=== PATIENT | female | born 1965 | race Hispanic/Latino ===

== ENCOUNTER → 2018-02-07 10:45 | Outpatient (CLI) | payer BC, SELFPAY ==
--- NOTE | 2018-02-07 | DI.MG.S_ITS ---
BILATERAL DIGITAL SCREENING MAMMOGRAM 3D/2D WITH CAD: 02/07/2018 CLINICAL: Routine screening. Comparison is made to exams dated: 02/14/2017 mammogram, 10/24/2016 mammogram, and 11/18/2015 mammogram - [facility]. There are scattered fibroglandular elements in both breasts. Current study was also evaluated with a Computer Aided Detection (CAD) system. No significant masses, calcifications, or other findings are seen in either breast. There has been no significant interval change. IMPRESSION: NEGATIVE There is no mammographic evidence of malignancy. A 1 year screening mammogram is recommended. This exam was interpreted at Station ID: [id number]. NOTE: For mammograms, a report in lay terms will be sent to the patient. Approximately 15% of breast malignancies will not be visualized mammographically. In the management of a palpable breast mass, a negative mammogram must not discourage biopsy of a clinically suspicious lesion. Electronically Signed By: Stephane kolb/prema:02/07/2018 16:36:01 letter sent: Normal Exam ACR BI-RADS Category 1: Negative 3341F
== END ==
PROVIDERS: Family Provider Family Medicine; PCP Family Medicine; Visit Provider Family Medicine
DX: Z12.31 Encounter for screening mammogram for malignant neoplasm of breast (principal)
CPT/HCPCS: 77063; 77067

== ENCOUNTER 2018-03-22 13:12 | Day surgery (SDC) | payer BC, SELFPAY ==
[2018-03-15 10:19] VITALS: BMI 26.9
[2018-03-22 13:28] VITALS: BP 120/75; PULSE 69; RESP 18; TEMP 36.5; O2SAT 99; BMI 26.9
[2018-03-22] MEDS: LACTATED RINGERS 1,000 ML 42 ML IV (14:15)
--- NOTE | 2018-03-22 14:48 | PM.PREOP ---
Pre-operative Note Interval Note Pre-op Check: Yes History & Physical Reviewed by Physician Changes: No
[2018-03-22] MEDS: CEFAZOLIN VIAL 1 GM in SODIUM CHLORIDE 0.9% 100 ML 200 ML IV (14:50)
--- NOTE | 2018-03-22 15:04 | SUR.OPER ---
Supine on padded OR bed, head on pillow, arms secured on padded arm boards at <90 degrees abduction, left leg under control of surgeon, right leg is taped over the blanket to the bed, safety belt at thigh, bump under left hip.
[2018-03-22] MEDS: LIDOCAINE 1% W/EPI INJ 20 ML INJ (15:19)
[2018-03-22] MEDS: BUPIVACAINE 0.5% (PF) VIAL 30 ML INJ (15:22)
[2018-03-22 15:44] VITALS: BP 110/74; PULSE 74; RESP 16; TEMP 36.4; O2SAT 98
--- NOTE | 2018-03-22 15:56 | PM.OP.1 ---
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 She has previously selected local anesthesia only so after carefully placing her under monitoring, the foot was prepped and injected with the recorded injectables to the forefoot and the heel to achieve anesthesia. She tolerated this well. The foot and ankle were prepped and draped in the usual aseptic manner. After a check of anesthesia a pair of converging semi elliptical longitudinal cuts were made to encompass the plantar medial heel keratoderma. This was down to full-thickness and was able to be excised entirely. This was evaluated and showed no significant areas of discoloration no extension in the subcutaneous area and no unusual projections or foreign bodies. The same was performed to the distal 2nd metatarsal head area and the cuts were instead done vertically. This 1 had a little more thinness to it based on the location of the skin. I mobilized the subcutaneous tissues a little bit to allow for coaptation of the skin. The areas were irrigated with copious amounts of normal sterile saline. The areas were cauterized and ligated as necessary. A single Vicryl suture was placed in the heel incision and both skin incisions were closed with nylon. She was dressed with a sterile lightly compressive dressing and transferred to the PACU with vital signs stable and vascular status intact. Complications: none Condition: stable Disposition: PACU Plan for aftercare: Patient will be discharged home on written and oral postoperative instructions including keeping the dressing dry and intact, avoiding ambulation to the foot, icing and elevating the foot when seated at home. DVT prevention techniques have been reviewed. The expectation was approximately 3 weeks that the plantar sutures would be in place and this can be out earlier but will continue to monitor and watch this. She is for the most part nonweightbearing on the foot during the immediate postoperative period and we will review this status at her 1st postoperative visit.
== END 2018-03-22 16:01 | disposition home or self-care (01) ==
PROVIDERS: Family Provider Family Medicine; PCP Family Medicine; Visit Provider Podiatrist
PROC: (CPT 11424; principal; 2018-03-22 14:15)
DX: R22.42 Localized swelling, mass and lump, left lower limb (principal); M77.42 Metatarsalgia, left foot
CPT/HCPCS: 11424 ×2; J0690

== ENCOUNTER → 2019-01-03 10:51 | Outpatient (CLI) | payer BC, SELFPAY ==
[2019-01-03 13:13] LABS: Cholesterol 241 mg/dL (140-199); HDL Cholesterol 40 mg/dL (40-60); LDL Cholesterol Calculated 152 mg/dL (<100); Triglycerides 244 mg/dL (35-150)
== END ==
PROVIDERS: PCP Student in an Organized Health Care Education/Training Program; Visit Provider Registered Nurse
DX: E78.2 Mixed hyperlipidemia (principal)
CPT/HCPCS: 36415; 80061

== ENCOUNTER → 2019-01-23 09:16 | Outpatient (CLI) | payer BC, SELFPAY ==
--- NOTE | 2019-01-23 | DI.CT.S_ITS ---
PROCEDURE: CT LE RT WO CON INDICATIONS: RIGHT ANKLE FRACTURE TECHNIQUE: Noncontrast 1-1.5 mm axial sections acquired from above the tibiotalar joint to the bottom of the calcaneus, with coronal and sagittal reformats. COMPARISON: [facility], CR, XR ANKLE 3+ VIEWS RIGHT, 01/18/2019, 17:25. [facility] [place], CR, XR ANKLE 3+ VIEWS RIGHT, 01/23/2019, 8:45. FINDINGS: Image quality: Excellent. Bones: There is a comminuted oblique fracture in the distal fibula with intra-articular involvement and 6 mm lateral displacement of the distal fracture fragment. There is widening of the distal tibiofibular interval consistent with tear of the distal tibiofibula syndesmosis. A comminuted oblique fracture is noted in the medial malleolus with mild displacement. In addition, there is a minimally displaced, mildly comminuted fracture of the posterior malleolus. The ankle mortise is uneven with lateral displacement of the talus the tibiotalar joint. There is widening of the medial joint space. No fractures are identified in tarsal bones and visualized proximal metatarsals. There is mild superior subluxation of the anterior process of calcaneus at the calcaneocuboid joint. Posterior and plantar calcaneal spurring. Mild degenerative joint disease is present at the talonavicular joint. Soft tissues: There is soft tissue swelling around ankle. There is small tibiotalar joint effusion. IMPRESSION: 1. Comminuted trimalleolar fractures as described. Uneven ankle mortise with widening of the medial joint space and lateral displacement of the talus at the tibiotalar joint. The distal tibiofibular syndesmosis is likely torn. 2. No fractures are identified in tarsal bones or visualized metatarsals. 3. Mild superior subluxation of the anterior process of calcaneus at the calcaneocuboid joint suggests ligamentous injury. 4. Soft tissue swelling and small tibiotalar joint effusion. Dictated by: Mckenzie Latif M.D. on 01/23/2019 at 9:52 Approved by: Mckenzie Latif M.D. on 01/23/2019 at 10:07
== END ==
PROVIDERS: PCP Student in an Organized Health Care Education/Training Program; Visit Provider Orthopaedic Surgery Foot and Ankle Surgery
DX: Z01.818 Encounter for other preprocedural examination (principal); S82.851A Displaced trimalleolar fracture of right lower leg, initial encounter for closed fracture; M25.471 Effusion, right ankle
CPT/HCPCS: 73700; 93005

== ENCOUNTER → 2019-02-11 09:11 | Outpatient (CLI) | payer BC, SELFPAY ==
--- NOTE | 2019-02-11 | DI.MG.S_ITS ---
BILATERAL DIGITAL SCREENING MAMMOGRAM 3D/2D WITH CAD: 02/11/2019 CLINICAL: Routine screening. Comparison is made to exams dated: 02/07/2018 mammogram, 02/14/2017 mammogram, and 10/24/2016 mammogram - [facility]. There are scattered fibroglandular elements in both breasts. Current study was also evaluated with a Computer Aided Detection (CAD) system. No significant masses, calcifications, or other findings are seen in either breast. There has been no significant interval change. IMPRESSION: NEGATIVE There is no mammographic evidence of malignancy. A 1 year screening mammogram is recommended. This exam was interpreted at Station ID: [id number]. NOTE: For mammograms, a report in lay terms will be sent to the patient. Approximately 15% of breast malignancies will not be visualized mammographically. In the management of a palpable breast mass, a negative mammogram must not discourage biopsy of a clinically suspicious lesion. Electronically Signed By: Day hunter/pream:02/11/2019 10:31:40 letter sent: Normal Exam ACR BI-RADS Category 1: Negative 3341F
== END ==
PROVIDERS: PCP Student in an Organized Health Care Education/Training Program; Visit Provider Student in an Organized Health Care Education/Training Program
DX: Z12.31 Encounter for screening mammogram for malignant neoplasm of breast (principal)
CPT/HCPCS: 77063; 77067

== ENCOUNTER → 2019-05-14 11:09 | Outpatient (CLI) | payer BC, SELFPAY ==
[2019-05-14 12:26] LABS: Blood Urea Nitrogen 19 mg/dL (7-17); Calcium 9.5 mg/dL (8.4-10.2); Carbon Dioxide 23 mmol/L (22-32); Chloride 108 mmol/L (98-107); Estimated Glomerular Filt Rate > 60.0 mL/min (>60); Glucose 113 mg/dL (70-100); HEMOLYSIS < 15 (0-50); Magnesium 1.9 mg/dL (1.6-2.3); Potassium 5.3 mmol/L (3.4-5.1); Sodium 142 mmol/L (137-145)
[2019-05-14 12:37] LABS: Vitamin D 25 Hydroxy (D3) 17.4 ng/mL (30.0-100.0)
== END ==
PROVIDERS: PCP Student in an Organized Health Care Education/Training Program; Visit Provider Student in an Organized Health Care Education/Training Program
DX: E55.9 Vitamin D deficiency, unspecified (principal); Z91.89 Other specified personal risk factors, not elsewhere classified; K21.9 Gastro-esophageal reflux disease without esophagitis; R25.2 Cramp and spasm
CPT/HCPCS: 36415; 80048; 82306; 83735

== ENCOUNTER → 2019-05-30 10:08 | Outpatient (CLI) | payer BC, SELFPAY | PROVIDERS: PCP Student in an Organized Health Care Education/Training Program; Visit Provider Student in an Organized Health Care Education/Training Program | DX: Z13.820 Encounter for screening for osteoporosis (principal); M85.88 Other specified disorders of bone density and structure, other site; Z78.0 Asymptomatic menopausal state; Z91.89 Other specified personal risk factors, not elsewhere classified | CPT/HCPCS: 77080 ==

== ENCOUNTER → 2020-02-17 16:55 | Outpatient (CLI) | payer BC, SELFPAY ==
--- NOTE | 2020-02-17 16:56 | DI.MG.S_ITS ---
BILATERAL DIGITAL SCREENING MAMMOGRAM 3D/2D WITH CAD: 02/17/2020 CLINICAL: Routine screening. Comparison is made to exams dated: 02/11/2019 mammogram, 02/07/2018 mammogram, and 02/14/2017 mammogram - [facility]. There are scattered fibroglandular elements in both breasts. Current study was also evaluated with a Computer Aided Detection (CAD) system. No significant masses, calcifications, or other findings are seen in either breast. There has been no significant interval change. IMPRESSION: NEGATIVE There is no mammographic evidence of malignancy. A 1 year screening mammogram is recommended. This exam was interpreted at Station ID: [id number]. NOTE: For mammograms, a report in lay terms will be sent to the patient. Approximately 15% of breast malignancies will not be visualized mammographically. In the management of a palpable breast mass, a negative mammogram must not discourage biopsy of a clinically suspicious lesion. Electronically Signed By: Анна hernandez/prema:02/18/2020 09:18:00 letter sent: Normal Exam ACR BI-RADS Category 1: Negative 3341F
== END ==
PROVIDERS: PCP Student in an Organized Health Care Education/Training Program; Referring Provider Student in an Organized Health Care Education/Training Program; Visit Provider Student in an Organized Health Care Education/Training Program
DX: Z12.31 Encounter for screening mammogram for malignant neoplasm of breast (principal)
CPT/HCPCS: 77063; 77067

== ENCOUNTER → 2021-02-09 14:19 | Outpatient (CLI) | payer BC, SELFPAY | PROVIDERS: PCP Student in an Organized Health Care Education/Training Program; Visit Provider Physician Assistant | DX: J02.9 Acute pharyngitis, unspecified (principal) | CPT/HCPCS: 87070 ==

== ENCOUNTER → 2021-02-21 10:03 | Outpatient (CLI) | payer BC, SELFPAY ==
--- NOTE | 2021-02-21 | DI.MG.S_ITS ---
BILATERAL DIGITAL SCREENING MAMMOGRAM 3D/2D WITH CAD: 02/21/2021 CLINICAL: Routine screening. Comparison is made to exams dated: 02/17/2020 mammogram, 02/11/2019 mammogram, and 02/07/2018 mammogram - [facility]. There are scattered fibroglandular elements in both breasts. Current study was also evaluated with a Computer Aided Detection (CAD) system. There are benign calcifications in both breasts. No significant masses, calcifications, or other findings are seen in either breast. There has been no significant interval change. IMPRESSION: BENIGN There is no mammographic evidence of malignancy. A 1 year screening mammogram is recommended. This exam was interpreted at Station ID: [id number]. NOTE: For mammograms, a report in lay terms will be sent to the patient. Approximately 15% of breast malignancies will not be visualized mammographically. In the management of a palpable breast mass, a negative mammogram must not discourage biopsy of a clinically suspicious lesion. Electronically Signed By: Chris Elmore acr/penrad:02/21/2021 10:34:40 letter sent: Normal Exam ACR BI-RADS Category 2: Benign Finding(s) 3342F
== END ==
PROVIDERS: PCP Student in an Organized Health Care Education/Training Program; Referring Provider Student in an Organized Health Care Education/Training Program; Visit Provider Student in an Organized Health Care Education/Training Program
DX: Z12.31 Encounter for screening mammogram for malignant neoplasm of breast (principal)
CPT/HCPCS: 77063; 77067

== ENCOUNTER → 2021-03-11 11:00 | Outpatient (CLI) | payer BC, SELFPAY ==
[2021-03-11 16:10] LABS: Vitamin D 25 Hydroxy (D3) 23.7 ng/mL (30.0-100.0)
[2021-03-14 15:48] LABS: ANA Screen, IFA Positive (.)
== END ==
PROVIDERS: PCP Student in an Organized Health Care Education/Training Program; Referring Provider Student in an Organized Health Care Education/Training Program; Visit Provider Student in an Organized Health Care Education/Training Program
DX: E55.9 Vitamin D deficiency, unspecified (principal); R21 Rash and other nonspecific skin eruption
CPT/HCPCS: 36415; 82306; 86038

== ENCOUNTER → 2022-02-23 10:28 | Outpatient (CLI) | payer BC, SELFPAY ==
--- NOTE | 2022-02-23 | DI.MG.S_ITS ---
BILATERAL DIGITAL SCREENING MAMMOGRAM 3D/2D WITH CAD: 02/23/2022 CLINICAL: Routine screening. Comparison is made to exams dated: 02/21/2021 mammogram, 02/17/2020 mammogram, and 02/11/2019 mammogram - [facility]. There are scattered fibroglandular elements in both breasts. Current study was also evaluated with a Computer Aided Detection (CAD) system. There are benign calcifications in both breasts. No significant masses, calcifications, or other findings are seen in either breast. There has been no significant interval change. IMPRESSION: BENIGN There is no mammographic evidence of malignancy. A 1 year screening mammogram is recommended. Based on the Tyrer Cuzick model (a risk assessment model) the patient's lifetime risk is 6.2% and her 10 year risk is 2.2%. According to the ACR, ACS, and NCCN guidelines, an annual breast MRI exam along with mammogram is recommended if the patient's lifetime risk is 20% or greater. This exam was interpreted at Station ID: [id number]. NOTE: For mammograms, a report in lay terms will be sent to the patient. Approximately 15% of breast malignancies will not be visualized mammographically. In the management of a palpable breast mass, a negative mammogram must not discourage biopsy of a clinically suspicious lesion. Electronically Signed By: Rufus sage/prema:02/23/2022 11:05:57 letter sent: Normal Exam ACR BI-RADS Category 2: Benign Finding(s) 3342F
== END ==
PROVIDERS: PCP Student in an Organized Health Care Education/Training Program; Referring Provider Student in an Organized Health Care Education/Training Program; Visit Provider Student in an Organized Health Care Education/Training Program
DX: Z12.31 Encounter for screening mammogram for malignant neoplasm of breast (principal)
CPT/HCPCS: 77063; 77067

== ENCOUNTER → 2023-02-26 08:16 | Outpatient (CLI) | payer BC, SELFPAY ==
--- NOTE | 2023-02-26 | DI.MG.S_ITS ---
BILATERAL DIGITAL SCREENING MAMMOGRAM 3D/2D WITH CAD: 02/26/2023 CLINICAL: Routine screening. Comparison is made to exams dated: 02/23/2022 mammogram, 02/21/2021 mammogram, and 02/17/2020 mammogram - [facility]. There are scattered areas of fibroglandular density in both breasts (category b / 25%-50% glandular tissue). Current study was also evaluated with a Computer Aided Detection (CAD) system. There are benign calcifications in both breasts. No significant masses, calcifications, or other findings are seen in either breast. There has been no significant interval change. IMPRESSION: BENIGN There is no mammographic evidence of malignancy. A 1 year screening mammogram is recommended. Based on the Tyrer Cuzick model (a risk assessment model) the patient's lifetime risk is 6.1% and her 10 year risk is 2.3%. According to the ACR, ACS, and NCCN guidelines, an annual breast MRI exam along with mammogram is recommended if the patient's lifetime risk is 20% or greater. This exam was interpreted at Station ID: [id number]. NOTE: For mammograms, a report in lay terms will be sent to the patient. Approximately 15% of breast malignancies will not be visualized mammographically. In the management of a palpable breast mass, a negative mammogram must not discourage biopsy of a clinically suspicious lesion. Electronically Signed By: Freedom osorio/prema:02/26/2023 09:17:37 letter sent: Normal Exam ACR BI-RADS Category 2: Benign Finding(s) 3342F
== END ==
PROVIDERS: PCP Pediatrics; Referring Provider Pediatrics; Visit Provider Pediatrics
DX: Z12.31 Encounter for screening mammogram for malignant neoplasm of breast (principal)
CPT/HCPCS: 77063; 77067

== ENCOUNTER → 2023-10-05 | Outpatient (CLI) | payer BC, SELFPAY ==
--- NOTE | 2023-10-05 09:28 | DI.RAD.S_ITS ---
PROCEDURE: XR SHOULDER LT MIN 2V INDICATIONS: PAIN LEFT SHOULDER TECHNIQUE: 3 views of the shoulder were acquired. COMPARISON: None. FINDINGS: Bones: No fractures or dislocations. No suspicious bony lesions. Visualized ribs appear intact. Small amount of calcification at the superolateral aspect of the humeral head. Mild acromioclavicular joint space narrowing. Soft tissues: No suspicious soft tissue calcifications. Calcification seen along the superior lateral margin of the humeral head soft tissues. IMPRESSION: 1. No acute bony abnormality. 2. Rotator cuff calcific tendinitis versus calcific bursitis. 3. Mild acromioclavicular joint osteoarthritis. Dictated by: Joshua BENZ Interpreted: Albina Spicer MD on 10/05/2023 at 9:51 Transcribed by: COURT on 10/05/2023 at 9:52 Approved by: Albina Spicer M.D. on 10/18/2023 at 20:45
[2023-10-05 11:07] LABS: Add Manual Diff / Slide Review NO; Basophils Absolute Auto 0 /uL (0-100); Basophils Percent Auto 0.3 % (0-2); Eosinophils Absolute Auto 200 /uL (0-450); Eosinophils Percent Auto 2.4 % (2-4); Hematocrit 39.2 % (36-46); Hemoglobin 13.4 g/dL (12.0-16.0); Lymphocytes Absolute Auto 2400 /uL (1100-4500); Lymphocytes Percent Auto 37.5 % (25-40); Mean Corpuscular HGB Conc 34.1 % (30-36); Mean Corpuscular Hemoglobin 30.3 PG (26-34); Mean Corpuscular Volume 88.9 fL (80-100); Monocytes Absolute Auto 600 /uL (0-900); Monocytes Percent Auto 9.5 % (3-14); Neutrophils Absolute Auto 3300 /uL (1500-7000); Neutrophils Percent Auto 50.3 % (50-75); Platelet Count 261 X10^3/uL (150-400); Red Blood Cell Count 4.41 X10^6/uL (4.0-5.2); Red Cell Distribution Width 12.8 % (11.6-14.8); White Blood Cell Count 6.5 X10^3/uL (4.5-11.0)
[2023-10-05 11:30] LABS: Alanine Aminotransferase 20 IU/L (<35); Albumin 4.3 g/dL (3.5-5.0); Albumin Globulin Ratio 1.3 (1.0-2.8); Alkaline Phosphatase 74 U/L (38-126); Aspartate Aminotransferase 27 IU/L (14-36); BUN Creatinine Ratio 26.9 (6-22); Bilirubin Total 0.8 mg/dL (0.2-1.3); Blood Urea Nitrogen 14 mg/dL (7-17); Calcium 9.1 mg/dL (8.4-10.2); Carbon Dioxide 28 mmol/L (22-32); Chloride 108 mmol/L (98-107); Cholesterol 254 mg/dL (140-199); Estimated Glomerular Filt Rate > 60 mL/min (>60); Globulin 3.4 g/dL (1.7-4.1); Glucose 93 mg/dL (70-100); HDL Cholesterol 39 mg/dL (40-60); HEMOLYSIS < 15 (0-50); LDL Cholesterol Calculated 176 mg/dL (<100); Potassium 4.6 mmol/L (3.4-5.1); Sodium 139 mmol/L (137-145); Total Protein 7.7 g/dL (6.3-8.2); Triglycerides 196 mg/dL (35-150)
[2023-10-05 11:47] LABS: Vitamin D 25 Hydroxy (D3) 35.8 ng/mL (30.0-100.0)
== END ==
PROVIDERS: PCP Family Medicine; Referring Provider Family Medicine; Visit Provider Family Medicine
DX: M19.012 Primary osteoarthritis, left shoulder (principal); M25.512 Pain in left shoulder; E78.2 Mixed hyperlipidemia; E55.9 Vitamin D deficiency, unspecified
CPT/HCPCS: 36415; 73030; 80053; 80061; 82306; 85025

== ENCOUNTER → 2024-02-28 07:38 | Outpatient (CLI) | payer BC, SELFPAY ==
--- NOTE | 2024-02-28 | DI.MG.S_ITS ---
BILATERAL DIGITAL SCREENING MAMMOGRAM 3D/2D WITH CAD: 02/28/2024 CLINICAL: Routine screening. Comparison is made to exams dated: 02/26/2023 mammogram, 02/23/2022 mammogram, and 02/21/2021 mammogram - [facility]. There are scattered areas of fibroglandular density in both breasts (category b / 25%-50% glandular tissue). Current study was also evaluated with a Computer Aided Detection (CAD) system. No significant masses, calcifications, or other findings are seen in either breast. There has been no significant interval change. IMPRESSION: NEGATIVE There is no mammographic evidence of malignancy. A 1 year screening mammogram is recommended. Based on the Tyrer Cuzick model (a risk assessment model) the patient's lifetime risk is 5.9% and her 10 year risk is 2.4%. According to the ACR, ACS, and NCCN guidelines, an annual breast MRI exam along with mammogram is recommended if the patient's lifetime risk is 20% or greater. This exam was interpreted at Station ID: [id number]. NOTE: For mammograms, a report in lay terms will be sent to the patient. Approximately 15% of breast malignancies will not be visualized mammographically. In the management of a palpable breast mass, a negative mammogram must not discourage biopsy of a clinically suspicious lesion. Electronically Signed By: Felicitas Gan M.D., Ph.D. josé miguel/prema:02/29/2024 08:44:28 letter sent: Normal Exam ACR BI-RADS Category 1: Negative 3341F
== END ==
PROVIDERS: PCP Family Medicine; Referring Provider Family Medicine; Visit Provider Family Medicine
DX: Z12.31 Encounter for screening mammogram for malignant neoplasm of breast (principal); R92.323 Mammographic fibroglandular density, bilateral breasts
CPT/HCPCS: 77063; 77067

== ENCOUNTER → 2024-05-15 09:52 | Outpatient (CLI) | payer BC, SELFPAY ==
[2024-05-15 10:34] LABS: Add Manual Diff / Slide Review NO; Basophils Absolute Auto 0 /uL (0-100); Basophils Percent Auto 0.5 % (0-2); Eosinophils Absolute Auto 100 /uL (0-450); Eosinophils Percent Auto 2.1 % (2-4); Hematocrit 38.4 % (36-46); Hemoglobin 13.1 g/dL (12.0-16.0); Lymphocytes Absolute Auto 2300 /uL (1100-4500); Lymphocytes Percent Auto 38.8 % (25-40); Mean Corpuscular Hemoglobin 30.6 PG (26-34); Mean Corpuscular Volume 90.1 fL (80-100); Monocytes Absolute Auto 500 /uL (0-900); Monocytes Percent Auto 8.7 % (3-14); Neutrophils Absolute Auto 2900 /uL (1500-7000); Neutrophils Percent Auto 49.9 % (50-75); Platelet Count 265 X10^3/uL (150-400); Red Blood Cell Count 4.26 X10^6/uL (4.0-5.2); Red Cell Distribution Width 12.8 % (11.6-14.8); White Blood Cell Count 5.8 X10^3/uL (4.5-11.0)
[2024-05-15 10:59] LABS: Alanine Aminotransferase 20 IU/L (<35); Albumin 4.1 g/dL (3.5-5.0); Albumin Globulin Ratio 1.4 (1.0-2.8); Alkaline Phosphatase 71 U/L (38-126); Aspartate Aminotransferase 26 IU/L (14-36); BUN Creatinine Ratio 24.6 (6-22); Blood Urea Nitrogen 14 mg/dL (7-17); Calcium 9.6 mg/dL (8.4-10.2); Carbon Dioxide 25 mmol/L (22-32); Chloride 104 mmol/L (98-107); Estimated Glomerular Filt Rate > 60 mL/min (>60); Glucose 98 mg/dL (80-110); HEMOLYSIS < 15 (0-50); Potassium 4.3 mmol/L (3.4-5.1); Sodium 136 mmol/L (137-145); Total Protein 7.1 g/dL (6.3-8.2)
[2024-05-15 11:28] LABS: TSH w/ Reflex to FT4 2.64 uIU/mL (0.47-4.68)
[2024-05-15 11:45] LABS: Vitamin B12 660 pg/mL (239-931)
== END ==
PROVIDERS: PCP Family Medicine; Referring Provider Family Medicine; Visit Provider Family Medicine
DX: E55.9 Vitamin D deficiency, unspecified (principal); R41.3 Other amnesia; Z13.6 Encounter for screening for cardiovascular disorders
CPT/HCPCS: 36415; 80053; 82607; 84443; 85025

== ENCOUNTER 2024-12-19 07:19 | Day surgery (SDC) | payer BC, SELFPAY ==
--- NOTE | 2024-12-19 | PATH_ITS ---
[facility] Accession Number: [id number] No. of containers..01 Tissue . 01 Material submitted: . colon - COLON,ASCENDING POLYP . 01 Diagnosis: ASCENDING COLON POLYP: Tubular adenoma. MRV 12/25/2024 1249 Local . 01 Electronically signed: . Brenda Aponte MD, Pathologist NPI- [id number] . 01 Gross description: . COLON,ASCENDING POLYP: Received in formalin are 2 fragment(s) of cota, soft tissue measuring 0.6 x 0.4 x 0.3 cm to 1.0 x 0.4 x 0.2 cm submitted entirely in 1 cassette(s) /ELBERT 12/22/2024 2030 Local . 01 Pathologist provided ICD-10: D12.2 . 01 CPT . 358618 Specimen Comment: A courtesy copy of this report has been sent to [phone] Performed at: [address] [id number] MD Sixto Luo MD Phone: [phone]
[2024-12-19 07:43] VITALS: BP 123/85; PULSE 85; RESP 18; TEMP 36.3; O2SAT 98
--- NOTE | 2024-12-19 07:57 | P.HP_ITS ---
History of Present Illness History of Present Illness Date Patient Seen: 12/19/24 Time Patient Seen: 07:57 Chief complaint: [facility] Narrative: Isabelle is a 58-year-old woman here for a colonoscopy. Her last one was about 6 years ago at [facility] and she would 4 polyps removed. No family history of colon cancer. [facility] Medical History (Updated 12/19/24 @ 07:58 by Mau Busch MD) History of hysterectomy (01/23/17) Bilateral foot pain Metatarsalgia of left foot Acquired keratoderma Left knee pain Mixed hyperlipidemia (~2013) Pelvic joint pain (Unknown) Rosacea (Unknown) Measles (Unknown) Chickenpox (Unknown) Recurrent sinusitis (Unknown) Genital prolapse (Unknown) Cystocele (~12/2013) Rectocele (~12/2013) Surgical History (Updated 10/02/23 @ 14:10 by Hamida Santos MD) History of foot surgery Social History household members: other Smoking Status: Never smoker alcohol intake: current substance use type: does not use caffeine: Yes (1-2 caffeine drinks per day) Type(s) of exercise: additional frequency: 1-2 times per week Meds Home Medications and Allergies Home Medications Medication Instructions Recorded Confirmed Type No Known Home Medications 12/19/24 12/19/24 History Allergies Allergy/AdvReac Type Severity Reaction Status Date / Time iodine [IODINE] Allergy Unknown HIVES Verified 12/19/24 07:53 Exam Vital Signs (past 8 hours): - 12/19/24 07:43 Temperature 97.4 F L Pulse Rate 85 Respiratory Rate 18 Blood Pressure 123/85 Pulse Oximetry 98 Oxygen Delivery Method Room Air Oxygen Delivery Method Room Air Const General: healthy appearing Resp Effort & Inspection: normal respiratory effort Assessment & Plan Assessment and plan (1) History of colon polyps: Status: Acute Plan Colonoscopy Time-Based Coding :: [TOTAL MINUTES] spent with patient and on the chart (including review of chart, obtaining history, exam, reviewing outside data, placing orders, documenting exam and treatment plan, and counseling patient) on [DATE]. PROFEE Environmental Health Safety Manager Document charge(s): No
[2024-12-19] MEDS: LACTATED RINGERS 1,000 ML 150 ML IV (07:58)
[2024-12-19 08:33] VITALS: BP 114/63; PULSE 73; RESP 16; TEMP 36.1; O2SAT 98
--- NOTE | 2024-12-19 08:37 | PM.OP.COLON ---
Operative Date/Time/Diagnoses Date of procedure: 12/19/24 Time of procedure: 08:37 Pre-op diagnosis: History of polyps Post-op diagnosis: same Procedure & Clinicians Study performed: Colonoscopy Same procedure as scheduled: Yes Surgeon: Mau Busch Procedure Notes Procedure in detail: Surgeon: Mau Busch MD Anesthesia: Ania Champagne CRNA Procedure: The patient was brought to the endoscopy suite, placed in left lateral decubitus position. The patient was connected to monitoring devices. A time-out was performed. Sedation was administered. Once the patient was adequately sedated, a digital rectal exam was performed and was normal. The scope was then inserted and advanced to the cecum where the appendiceal orifice was identified and photographed. The scope was then slowly withdrawn over greater than 6 minutes. The mucosa was thoroughly inspected. There was a 5 mm polyp in the ascending colon removed with a cold snare. The scope was retroflexed in the rectum. No other abnormalities were found. The scope was straightened and removed. The patient was awakened and brought to recovery. Scope withdrawal time: 12 minutes Sedation time: 19 minutes EBL: 3 mL Findings: 5 mm polyp in the ascending colon Post-procedure Disposition: PACU
[2024-12-19 08:38] VITALS: BP 122/67; PULSE 72; RESP 16; O2SAT 100
[2024-12-19 08:43] VITALS: BP 106/60; PULSE 67; RESP 16; TEMP 36.2; O2SAT 100
[2024-12-19 08:48] VITALS: BP 111/62; PULSE 62; RESP 16; TEMP 36.2; O2SAT 100
== END 2024-12-19 08:57 | disposition home or self-care (01) ==
PROVIDERS: PCP Family Medicine; Referring Provider Surgery; Visit Provider Surgery
PROC: 0DJD8ZZ Inspection of Lower Intestinal Tract, Via Natural or Artificial Opening Endoscopic (ICD-10-PCS; CPT 45378; principal; 2024-12-19 08:30)
DX: Z12.11 Encounter for screening for malignant neoplasm of colon (principal); Z86.0100 Personal history of colon polyps, unspecified; D12.2 Benign neoplasm of ascending colon
CPT/HCPCS: 45385; J2704

== ENCOUNTER → 2025-03-03 12:58 | Outpatient (CLI) | payer BC, SELFPAY ==
--- NOTE | 2025-03-03 12:59 | DI.MG.S_ITS ---
MM screening mammo BI: 03/03/2025. BI-RADS: 1 CLINICAL: 59-year old female for bilateral screening mammogram. Tyrer-Cuzick lifetime risk of 6.5%. No personal or first-degree family history of breast cancer. PRIOR EXAMS 02/28/2024, 02/26/2023, 02/23/2022, 02/21/2021. MAMMOGRAPHY TECHNIQUE: 2D and 3D (tomosynthesis) digital mammographic views obtained, with additional images as needed for full coverage. Current study was also evaluated with a Computer Aided Detection (CAD) system. DENSITY B. There are scattered areas of fibroglandular density. MAMMOGRAPHY FINDINGS Bilateral: No suspicious mass, asymmetry, microcalcification, or other abnormality seen. No significant change from comparison. IMPRESSION: * No evidence of malignancy. RECOMMENDATIONS Bilateral * Annual screening mammography. OVERALL ASSESSMENT CATEGORY BI-RADS-1: Negative. The [employer] recommends annual screening mammography beginning at age 40 for women with average risk of breast cancer. ELECTRONICALLY SIGNED: Wilma Leon M.D. on 03/03/2025 at 05:40:43 PM PT Interpreting Station ID: [id number]
== END ==
PROVIDERS: PCP Family Medicine; Referring Provider Family Medicine; Visit Provider Family Medicine
DX: Z12.31 Encounter for screening mammogram for malignant neoplasm of breast (principal)
CPT/HCPCS: 77063; 77067